=== PATIENT | male | born 1990 | race Caucasian/White ===

== ENCOUNTER 2025-02-05 09:55 | Emergency (ER) | payer OTHER ==
[~2025-02-05] VITALS: Wt 127.0 kg
[2025-02-05] MEDS ORDERED: BUPRENORPHINE HY8 MG SL (10:11)
[2025-02-05] MEDS ORDERED: Tetracaine Hydrochloride 0.5% 4 ML BOT OPH ONE (10:20)
[2025-02-05] MEDS ORDERED: FLUORESCEIN SODIUM 1 MG STRIP OPH ONE (10:25)
[2025-02-05] MEDS ORDERED: ERYTHROMYCIN OPH1 GM OPH (10:36)
== END 2025-02-05 10:45 | disposition home or self-care (01) ==
LOC: ED 09:55
DX: S05.02XA Injury of conjunctiva and corneal abrasion without foreign body, left eye, initial encounter (principal); Z79.899 Other long term (current) drug therapy; W22.8XXA Striking against or struck by other objects, initial encounter; Y93.89 Activity, other specified; Y92.89 Other specified places as the place of occurrence of the external cause; Y99.8 Other external cause status